=== PATIENT | female | born 1960 | race Caucasian/White ===

== ENCOUNTER 2019-04-30 12:04 | Emergency (ER) | payer OTHER ==
[2019-04-30 13:05] VITALS: BP 156/97
--- NOTE | 2019-04-30 14:26 | UC ---
Throat Pain/Nasal Ji HPI - HPI Summary HPI Summary: 58 y/o female presents to the urgent care c/o sore throat, sinus congestion w/ yellowish PND and tongue pain w/ a dry cough for the past week. Pain w/ swallowing is 6/10. Pt has been taken OTC medications w/o any improvement. In the morning her throat hurts more due to the PND. B/l ear pressure. Pt denies fever, dizziness, SOB, wheezing, chest pain, abdominal pain, N/V/D. - History of Current Complaint Chief Complaint: UCGeneralIllness Stated Complaint: ST Time Seen by Provider: 04/30/19 14:25 Hx Obtained From: Patient ?: No Onset/Duration: Gradual Onset, Lasting Weeks - 1 week, Still Present, Worse Since - 2 days Severity: Moderate Pain Intensity: 6 - sore throat Pain Scale Used: 0-10 Numeric Cough: Nonproductive Associated Signs & Symptoms: Positive: Sinus Discomfort, Nasal Discharge - yellowish. Negative: Dysphagia, Wheezing, Fever - Epiglottits Risk Factors Epiglottis Risk Factors: Negative - Allergies/Home Medications Allergies/Adverse Reactions: Allergies Allergy/AdvReac Type Severity Reaction Status Date / Time No Known Allergies Allergy Verified 04/30/19 12:58 Home Medications: Home Medications Linaclotide [Linzess] 145 mcg PO DAILY 04/30/19 [History Confirmed 04/30/19] Omeprazole 20 mg PO DAILY 04/30/19 [History Confirmed 04/30/19] Vortioxetine Hydrobromide [Trintellix] 5 mg PO DAILY 04/30/19 [History Confirmed 04/30/19] PMH/Surg Hx/FS Hx/Imm Hx Previously Healthy: Yes - Pt denies PMHX - Surgical History Surgical History: Yes Surgery Procedure, Year, and Place: HYSTERECTOMY, TWO ECTOPIC PREGNACIES, OVARIAN CYSTECTOMY, BREAST REDUCTION, LASIC EYE SURGERY. cataract L eye - Family History Known Family History: Positive: Hypertension, Diabetes - Social History Occupation: Employed Full-time Lives: With Family Alcohol Use: Occasionally Substance Use Type: None Smoking Status (MU): Former Smoker When Did the Patient Quit Smoking/Using Tobacco: 2012 Review of Systems All Other Systems Reviewed And Are Negative: Yes Constitutional: Positive: Negative Skin: Positive: Negative Eyes: Positive: Negative ENT: Positive: Sore Throat, Ear Ache - b/L ear pressure, Nasal Discharge - yellowish, Sinus Congestion, Sinus Pain/Tenderness, Other - Moderate PND Respiratory: Positive: Cough - dry Cardiovascular: Positive: Negative Gastrointestinal: Positive: Negative Genitourinary: Positive: Negative Motor: Positive: Negative Neurovascular: Positive: Negative Musculoskeletal: Positive: Negative Neurological: Positive: Headache Psychological: Positive: Negative Is Patient Immunocompromised?: No Physical Exam - Summary Physical Exam Summary: Vitals: reviewed General: Well developed, well-nourished male patient with NAD. Head and face: Normocephalic and atraumatic, Positive tenderness over the frontal and maxillary sinuses.. Eyes: PERRLA, EOMI x 2. Normal conjunctiva. No eye discharge. ENT: Ears and TM with normal limits. Nose: edematous and erythematous nasal mucosa with with yellowish discharge and erythematous mucosa. Pharynx with erythema, no exudate. yellowish PND Neck: Supple, no JVD, no carotid bruits and no lymphadenopathy. Lungs: clear, no rales, no rhonchi, no wheezes. CVS: RRR, S1 and S2 present no murmurs or gallops appreciated. Abdomen: soft nontender with positive bowel sounds. Extremities: no edema noted. Neuro: WNL. Skin: warm and dry Triage Information Reviewed: Yes Vital Signs: Initial Vital Signs Temp 99 F 04/30/19 13:00 Pulse 71 04/30/19 13:00 Resp 17 04/30/19 13:00 BP 156/97 04/30/19 13:00 Pulse Ox 100 04/30/19 13:00 Throat Pain/Nasal Course/Dx - Course Course Of Treatment: 58 y/o female presents to the urgent care c/o sore throat, sinus congestion w/ yellowish PND and tongue pain w/ a dry cough for the past week. Pain w/ swallowing is 6/10. Pt has been taken OTC medications w/o any improvement. In the morning her throat hurts more due to the PND. B/l ear pressure. Pt denies fever, dizziness, SOB, wheezing, chest pain, abdominal pain, N/V/D. Hx obtained. Pt w/ sinusitis and pharyngitis on examination. Rapid strep: negative. Pt with 1 week of symptoms getting worse. Pt Rx Amoxicillin PO and flonase nasal spray. Pt's BP is elevated today advised to decrease salt in diet, monitor BP and f/u with PCP for further management. Discharge instructions explained to Pt. Advised to Return to the clinic or PCP if symptoms do not improve.Pt understood and agreed with plan of care. - Differential Dx/Diagnosis Differential Diagnosis/HQI/PQRI: Epiglottitis, Laryngitis, Mononucleosis, Peritonsillar Abscess, Pharyngitis, Sinusitis, Tonsillitis, URI Provider Diagnosis: Acute bacterial sinusitis, Pharyngitis, Elevated BP without diagnosis of hypertension Discharge - Sign-Out/Discharge Documenting (check all that apply): Patient Departure - D/C home All imaging exams completed and their final reports reviewed: No Studies - Discharge Plan Condition: Stable Disposition: HOME Prescriptions: Amoxicillin PO (*) [Amoxicillin 500 MG CAP*] 500 mg PO Q12H #14 cap Fluticasone NASAL SPRAY 50MCG* [Flonase NASAL SPRAY 50MCG*] 2 spray BOTH NARES DAILY #1 btl Patient Education Materials: Pharyngitis (ED), Sinusitis (ED) Referrals: [facility] [place] [facility] [Outside] - 3 Days Additional Instructions: 1- Please increase fluid intake and rest. take full course of antibiotic to avoid resistance. Take yogurts w/ probiotics or Culturelle to protect your GI system 2-Use Flonase as directed to help drain fluid. Also buy saline drops to clear sinuses 3-Take Ibuprofen PO 600mg q6-8hrs prn to alleviate pain and swelling. 4-Please f/u w/ your PCP in 3 days if symptoms do not improve for further management and treatment 5- If symptoms worsen and you develop fever or throat swelling despite taking medication please go immediately to the Er for further management 6- Your BP is elevated today. please decrease salt in your diet, monitor BP and if it continues to be elevated please f/u with your PCP for further management. - Billing Disposition and Condition Condition: STABLE Disposition: Home
== END 2019-04-30 14:51 | disposition home or self-care (01) ==
LOC: UCCORT 12:04
DX: J02.9 Acute pharyngitis, unspecified (principal); J01.90 Acute sinusitis, unspecified; B96.89 Other specified bacterial agents as the cause of diseases classified elsewhere; R03.0 Elevated blood-pressure reading, without diagnosis of hypertension; Z87.891 Personal history of nicotine dependence; Z79.899 Other long term (current) drug therapy
CPT/HCPCS: 87651; 99202; G0463